=== PATIENT | male | born 1985 | race Hispanic/Latino ===

== ENCOUNTER 2019-07-06 14:01 | Emergency (ER) | payer SELFPAY ==
[~2019-07-06] VITALS: Ht 172.7 cm; Wt 84.8 kg
== END 2019-07-06 14:18 | disposition home or self-care (01) ==
LOC: EDBD 14:01 → ER 14:10
DX: L02.212 Cutaneous abscess of back [any part, except buttock and flank] (principal)
CPT/HCPCS: 99283